=== PATIENT | male | born 1975 | race Caucasian/White ===

== ENCOUNTER 2017-01-24 15:22 | Emergency (ER) | payer OTHER ==
[~2017-01-24] VITALS: Ht 193 cm; Wt 113.4 kg
[~2017-01-24 15:22] MED LIST: AMLO10 PO; CLON-352 PO; OMEP20CA5 PO; TAB-TAB PO; THIA50CA PO; VALI10TA PO
[2017-01-24 15:23] VITALS: BP 157/104; PULSE 92; RESP 24; TEMP 97.9; O2SAT 94
--- NOTE | 2017-01-24 15:39 | PD ---
Physical Exam Date Seen by Provider: Jan 24, 2017 Time Seen by Provider: 15:36 Narrative 33-year-old white male presents with complaint of stating that he needs a paracentesis. Patient has a history of stage liver failure with what cirrhosis. Patient states that his chemotherapy-related and not alcohol related. History of Wilms tumor. No history of hepatitis. Patient rates his pain as 7/10. Patient's quality of shortness of breath, increased abdominal girth and increased orthopnea. Vital signs reviewed. Awaiting bed placement. Data Data Last Documented VS Vital Signs Date Time Temp Pulse Resp B/P (MAP) Pulse Ox O2 Delivery O2 Flow Rate FiO2 01/24/17 15:23 97.9 92 24 157/104 (121) 94 Room Air [facility] Medical Record Reviewed: No Supervised Visit with ANG: Ky Fairbanks Jan 24, 2017 15:39
[2017-01-24 16:44] VITALS: BP 129/91; PULSE 91; RESP 18; TEMP 97.8; O2SAT 97
[2017-01-24] MEDS ORDERED: FURO1TAB60 PO (16:44)
[2017-01-24] MEDS ORDERED: ALPR2TAB3 PO (16:44)
[2017-01-24] MEDS ORDERED: OXYC-396 PO (16:44)
[2017-01-24] MEDS ORDERED: ERGO2000 PO (16:44)
[2017-01-24] MEDS ORDERED: DULO1CAP3 PO (16:44)
[2017-01-24] MEDS ORDERED: FOLI1TAB6 (16:44)
[2017-01-24] MEDS ORDERED: LEVO50TA4 PO (16:44)
[2017-01-24] MEDS ORDERED: CARA1TAB6 PO (16:44)
[2017-01-24] MEDS ORDERED: ONDA1TAB17 PO (16:44)
--- NOTE | 2017-01-24 16:53 | PD ---
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 He is on the liver transplant list. He was getting paracenteses about every 2 weeks but recently changed insurances and has not have a GI doctor and has not been able to arrange for his outpatient paracentesis. He complains of increased abdominal pain and swelling. History Past Medical History Narrative Medical End-stage liver disease Tetanus Vaccination: > 5 Years Influenza Vaccination: Yes Social History Alcohol Use: Yes (OCCASSIONALLY) Tobacco Use: No (quit 7 years ago) Allergies-Medications (Allergen,Severity, Reaction): Coded Allergies: acetaminophen (Verified Adverse Reaction, Severe, ITCHY, 01/24/17) propoxyphene (Verified Adverse Reaction, Severe, ITCHY, 01/24/17) Reported Meds & Prescriptions Reported Meds & Active Scripts Active Reported Duloxetine DR (Duloxetine HCl) 60 Mg Capdr 60 Mg PO DAILY Alprazolam 2 Mg Tab 2 Mg PO Q8H PRN Lasix (Furosemide) 40 Mg Tab 40 Mg PO DAILY Levothyroxine (Levothyroxine Sodium) 50 Mcg Tab 50 Mcg PO DAILY Oxycodone (Oxycodone HCl) 20 Mg Tab 20 Mg PO Q6HR Folic Acid 1 Mg Tablet 1 Mg DAILY Carafate (Sucralfate) 1 Gram Tab 1 Gm PO QID On empty stomach Vitamin D2 (Ergocalciferol) 2,000 Unit Tab 50,000 Units PO DAILY Ondansetron (Ondansetron HCl) 8 Mg Tab 8 Mg PO TID Review of Systems Except as stated in HPI: all other systems reviewed are Neg Physical Exam Narrative GENERAL: Well-appearing 41-year-old man, no acute distress. SKIN: Focused skin assessment warm/dry. CARDIOVASCULAR: Regular rate and rhythm. No murmur appreciated. RESPIRATORY: No accessory muscle use. Clear to auscultation. Breath sounds equal bilaterally. GASTROINTESTINAL: Abdomen distended and taut. MUSCULOSKELETAL: No obvious deformities. No clubbing. No cyanosis. No edema. NEUROLOGICAL: Awake and alert. Data Data Last Documented VS Vital Signs Date Time Temp Pulse Resp B/P (MAP) Pulse Ox O2 Delivery O2 Flow Rate FiO2 01/24/17 16:44 97.8 91 18 129/91 (104) 97 01/24/17 15:23 Room Air Orders Orders Complete Blood Count With Diff (01/24/17 16:34) Comprehensive Metabolic Panel (01/24/17 16:34) Act Partial Throm Time (Ptt) (01/24/17 16:34) Prothrombin Time / Inr (Pt) (01/24/17 16:34) Hydromorphone Pf Inj (Dilaudid Pf Inj) (01/24/17 17:00) Labs Laboratory Tests Test 01/24/17 16:40 White Blood Count 7.2 TH/MM3 Red Blood Count 3.32 MIL/MM3 Hemoglobin 9.8 GM/DL Hematocrit 29.6 % Mean Corpuscular Volume 89.4 FL Mean Corpuscular Hemoglobin 29.4 PG Mean Corpuscular Hemoglobin Concent 32.9 % Red Cell Distribution Width 13.2 % Platelet Count 198 TH/MM3 Mean Platelet Volume 7.2 FL Neutrophils (%) (Auto) 73.0 % Lymphocytes (%) (Auto) 12.3 % Monocytes (%) (Auto) 11.3 % Eosinophils (%) (Auto) 2.4 % Basophils (%) (Auto) 1.0 % Neutrophils # (Auto) 5.3 TH/MM3 Lymphocytes # (Auto) 0.9 TH/MM3 Monocytes # (Auto) 0.8 TH/MM3 Eosinophils # (Auto) 0.2 TH/MM3 Basophils # (Auto) 0.1 TH/MM3 CBC Comment DIFF FINAL Differential Comment Prothrombin Time 12.2 SEC Prothromb Time International Ratio 1.1 RATIO Activated Partial Thromboplast Time 31.2 SEC Blood Urea Nitrogen 26 MG/DL Creatinine 1.51 MG/DL Random Glucose 95 MG/DL Total Protein 7.5 GM/DL Albumin 2.3 GM/DL Calcium Level 8.5 MG/DL Alkaline Phosphatase 631 U/L Aspartate Amino Transf (AST/SGOT) 26 U/L Alanine Aminotransferase (ALT/SGPT) 12 U/L Total Bilirubin 1.1 MG/DL Sodium Level 136 MEQ/L Potassium Level 4.2 MEQ/L Chloride Level 101 MEQ/L Carbon Dioxide Level 26.3 MEQ/L Anion Gap 9 MEQ/L Estimat Glomerular Filtration Rate 52 ML/MIN MDM Medical Decision Making Medical Screen Exam Complete: Yes Emergency Medical Condition: Yes Differential Diagnosis Ascites, need for paracentesis Narrative Course Medical decision making 41-year-old man with end-stage liver disease needs paracentesis. This will be arranged as an outpatient form. Was given an order. Labs were sent. Diagnosis Primary Impression: Ascites Additional Instructions: Call [phone] to schedule therapeutic paracentesis. Return to the emergency department for any new or worsening symptoms. Med/Other Pt SpecificInfo: Prescription(s) given Disposition: 01 DISCHARGE HOME Condition: Stable Ignacio Geller MD Jan 24, 2017 16:53
[2017-01-24] MEDS ORDERED: HYDROmorphone HCL PF 1 MG/ML VIAL IVS ONE (17:00)
[2017-01-24 17:07] LABS: AUTOMATED NEUTROPHIL # 5.3 TH/MM3 (1.8-7.7); BASOPHIL # 0.1 TH/MM3 (0-0.2); EOSINOPHIL # 0.2 TH/MM3 (0-0.4); EOSINOPHIL % 2.4 % (0.0-4.0); HEMATOCRIT 29.6 % (39.0-51.0); HEMO FLAGS DIFF FINAL; LYMPH % 12.3 % (9.0-44.0); LYMPHOCYTE # 0.9 TH/MM3 (1.0-4.8); MEAN CELL VOLUME 89.4 FL (80.0-100.0); MEAN CORPUSCULAR HEMOGLOBIN 29.4 PG (27.0-34.0); MEAN CORPUSCULAR HGB CONC 32.9 % (32.0-36.0); MONO % 11.3 % (0.0-8.0); PLATELET COUNT 198 TH/MM3 (150-450); RED BLOOD COUNT 3.32 MIL/MM3 (4.50-5.90); RED CELL DISTRIBUTION WIDTH 13.2 % (11.6-17.2); WHITE BLOOD COUNT 7.2 TH/MM3 (4.0-11.0)
[2017-01-24 17:11] LABS: ANION GAP 9 MEQ/L (5-15); APTT (PATIENT) 31.2 SEC (24.3-30.1); AST (GOT) 26 U/L (15-37); BICARBONATE 26.3 MEQ/L (21.0-32.0); BLOOD UREA NITROGEN 26 MG/DL (7-18); CHLORIDE 101 MEQ/L (98-107); GLOMERULAR FILTRATION RATE 52 ML/MIN (>89); INTERNATIONAL NORMALIZED RATIO 1.1 RATIO; POTASSIUM 4.2 MEQ/L (3.5-5.1); PROTHROMBIN TIME - PATIENT 12.2 SEC (9.8-11.6); SODIUM (NA) 136 MEQ/L (136-145)
[2017-01-24 17:13] LABS: ALT (GPT) 12 U/L (12-78)
[2017-01-24 17:14] LABS: ALKALINE PHOSPHATASE 631 U/L (45-117); TOTAL BILIRUBIN ADULT 1.1 MG/DL (0.2-1.0)
[2017-01-24 17:25] VITALS: BP 130/78; RESP 17; TEMP 97.8
== END 2017-01-24 17:25 | disposition home or self-care (01) ==
LOC: NEPE 15:22
DX: R18.8 Other ascites (principal); K71.8 Toxic liver disease with other disorders of liver; K75.81 Nonalcoholic steatohepatitis (NASH); T45.1X5S Adverse effect of antineoplastic and immunosuppressive drugs, sequela; Z76.82 Awaiting organ transplant status; Z85.528 Personal history of other malignant neoplasm of kidney; Z87.891 Personal history of nicotine dependence
CPT/HCPCS: 80053; 85025; 85610; 85730; 96374; 99284; J1170

== ENCOUNTER 2017-01-26 08:02 | Day surgery (SDC) | payer OTHER ==
[~2017-01-26 08:02] MED LIST changes: +ALPR2TAB3 PO; -AMLO10 PO; +CARA1TAB6 PO; -CLON-352 PO; +DULO1CAP3 PO; +ERGO2000 PO; +FOLI1TAB6; +FURO1TAB60 PO; +LEVO50TA4 PO; -OMEP20CA5 PO; +ONDA1TAB17 PO; +OXYC-396 PO; -TAB-TAB PO; -THIA50CA PO; -VALI10TA PO
[2017-01-26 08:58] VITALS: BP 132/88; PULSE 101; RESP 18; TEMP 98; O2SAT 94
[2017-01-26 10:35] VITALS: BP 118/70; PULSE 99; RESP 18; TEMP 98.3; O2SAT 94
[2017-01-26] MEDS ORDERED: ALBUMIN HUMAN 25% 25 GM/100 ML BAGP IV ONE (10:47)
[2017-01-26 10:50] VITALS: BP 114/71; PULSE 59; RESP 18; O2SAT 94
[2017-01-26] MEDS ORDERED: ALBUMIN HUMAN 25% 50GM-W/12.5GM FOR 62.5GM IV ONE (11:15)
[2017-01-26] MEDS ORDERED: ALBUMIN HUMAN 25% 12.5GM-W/50GM FOR 62.5GM IV ONE (11:15)
--- NOTE | 2017-01-26 15:37 | RADRPT ---
EXAM DATE/TIME: 01/26/2017 08:39 [place] COMPARISON: No previous studies available for comparison. INDICATIONS : Ascites. MEDICAL HISTORY : Hypertension. Gastroesophageal reflux disease. End stage liver disease. Chemotherapy. SURGICAL HISTORY : Tonsillectomy. Right nephrectomy. ENCOUNTER: Initial ACUITY: 2 days PAIN SCORE: 4/10 LOCATION: Left lower quadrant FLUID: Total volume of 11,600 cc of clear, yellow fluid was removed. Fluid was discarded. Paracentesis was therapeutic only. Post procedure scanning reveals no hematoma or other complication. TECHNIQUE: 1. Ultrasound guidance for abdominal paracentesis. 2. Paracentesis. The risks, benefits, and alternatives to ultrasound guided paracentesis were explained to the patient in detail including the risk of bleeding and infection. Written and verbal informed consent was obt ained. With the patient on the ultrasound table, ultrasound imaging was used to select the most appropriate approach for paracentesis. Overlying skin was prepped and draped in the usual sterile fashion and wi th a local anesthetic, a dermatotomy was made with an 11 blade scalpel. A 6 [place] [id number] ca theter was introduced into the peritoneal cavity and fluid was collected. The patient tolerated the procedure well and left the ultrasound suite in stable condition. CONCLUSION: Uncomplicated ultrasound guided paracentesis. Be Henry MD on January 26, 2017 at 15:36 Board Certified Radiologist. This report was verified electronically.
== END 2017-01-26 11:40 | disposition home or self-care (01) ==
LOC: HRAD 08:02 → HRIP 08:07 → HRAD 11:40
PROVIDERS: ATTEND Preventive Medicine Addiction Medicine
DX: R18.8 Other ascites (principal); K72.90 Hepatic failure, unspecified without coma; I10 Essential (primary) hypertension; K21.9 Gastro-esophageal reflux disease without esophagitis
CPT/HCPCS: 49083; 96365; C1729; P9047

== ENCOUNTER 2017-02-10 09:01 | Emergency (ER) | payer OTHER ==
[~2017-02-10] VITALS: Ht 162.6 cm; Wt 114.0 kg
[2017-02-10 09:03] VITALS: BP 167/100; PULSE 82; RESP 16; TEMP 98.8; O2SAT 97
[2017-02-10 09:25] VITALS: BP 158/98; PULSE 60; RESP 20; TEMP 98.3; O2SAT 100
[2017-02-10 09:56] VITALS: O2SAT 100
[2017-02-10] MEDS ORDERED: SODIUM CHLORIDE 0.9% FLUSH 10 ML FLUSH IV FLUSH PRN (10:00)
[2017-02-10] MEDS ORDERED: MORPHINE SULFATE 4 MG/ML INJ IV PUSH ONE (10:00)
[2017-02-10] MEDS ORDERED: PROP10TA6 PO (10:04)
[2017-02-10 10:18] VITALS: BP 144/97; PULSE 74; RESP 20; O2SAT 97
[2017-02-10 10:24] LABS: AUTOMATED NEUTROPHIL # 5.5 TH/MM3 (1.8-7.7); BASOPHIL # 0.1 TH/MM3 (0-0.2); BASOPHIL % 0.9 % (0.0-2.0); EOSINOPHIL # 0.2 TH/MM3 (0-0.4); EOSINOPHIL % 2.3 % (0.0-4.0); HEMO FLAGS DIFF FINAL; LYMPH % 13.7 % (9.0-44.0); MEAN CELL VOLUME 89.1 FL (80.0-100.0); MEAN CORPUSCULAR HEMOGLOBIN 29.2 PG (27.0-34.0); MEAN CORPUSCULAR HGB CONC 32.8 % (32.0-36.0); MONO % 10.9 % (0.0-8.0); NEUT % 72.2 % (16.0-70.0); PLATELET COUNT 162 TH/MM3 (150-450); RED BLOOD COUNT 3.37 MIL/MM3 (4.50-5.90); RED CELL DISTRIBUTION WIDTH 13.7 % (11.6-17.2); WHITE BLOOD COUNT 7.6 TH/MM3 (4.0-11.0)
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
[2017-02-10 10:51] LABS: ALT (GPT) 13 U/L (12-78); ANION GAP 7 MEQ/L (5-15); AST (GOT) 31 U/L (15-37); BICARBONATE 24.7 MEQ/L (21.0-32.0); BLOOD UREA NITROGEN 21 MG/DL (7-18); CHLORIDE 107 MEQ/L (98-107); GLOMERULAR FILTRATION RATE 57 ML/MIN (>89); POTASSIUM 4.2 MEQ/L (3.5-5.1); SODIUM (NA) 139 MEQ/L (136-145)
[2017-02-10 10:54] LABS: ALKALINE PHOSPHATASE 631 U/L (45-117); TOTAL BILIRUBIN ADULT 0.7 MG/DL (0.2-1.0)
[2017-02-10 11:00] VITALS: BP 158/97; PULSE 77; RESP 16; O2SAT 97
[2017-02-10 11:34] LABS: BACTERIA, URINE RARE /hpf; BLOOD, URINE SMALL (NEG); GLUCOSE,URINE NEG (NEG); GRANULAR CAST, URINE 1 /lpf; KETONE, URINE NEG (NEG); NITRITE,URINE NEG (NEG); PH, URINE 6.5 (5.0-8.5); URINE COLOR YELLOW (YELLW/STRAW)
[2017-02-10 11:35] LABS: COMMENT (UR) CULT NOT INDICATED; CULTURE IF INDICATED CULT NOT INDICATED
[2017-02-10] MEDS ORDERED: LEVO50TA4 PO (12:11)
[2017-02-10] MEDS ORDERED: OXYC-395 PO (12:11)
[2017-02-10] MEDS ORDERED: ZOFR8TAB PO (12:11)
[2017-02-10] MEDS ORDERED: FURO80TA PO (12:11)
[2017-02-10 12:37] VITALS: BP 158/98; PULSE 83; RESP 20; O2SAT 97
== END 2017-02-10 12:55 | disposition home or self-care (01) ==
LOC: NEPC 09:01
DX: R18.8 Other ascites (principal); R06.02 Shortness of breath; K74.60 Unspecified cirrhosis of liver; Z85.528 Personal history of other malignant neoplasm of kidney; Z85.820 Personal history of malignant melanoma of skin; Z87.891 Personal history of nicotine dependence
CPT/HCPCS: 80053; 81001; 83605; 83690; 85025; 96374; 99284; J2270